=== PATIENT | female | born 1930 | race African-American/Black ===

== ENCOUNTER 2017-07-16 18:42 | Emergency (ER) | payer OTHER ==
[~2017-07-16] VITALS: Ht 162.6 cm; Wt 57.6 kg
[2017-07-16] MEDS ORDERED: NAMZARIC 14 MG1 EACH PO (18:58)
[2017-07-16] MEDS ORDERED: OYSTER SHELL 51 EACH PO (18:58)
[2017-07-16] MEDS ORDERED: TRAZODONE HCL50 MG PO (18:59)
[2017-07-16] MEDS ORDERED: TRIAMCINOLONE A80 G2 TOP (18:59)
[2017-07-16] MEDS ORDERED: LOPRESSOR50 PO (18:59)
[2017-07-16] MEDS ORDERED: MELATONIN3 MG PO (19:00)
[2017-07-16] MEDS ORDERED: CLARITIN10 MG PO (19:00)
[2017-07-16] MEDS ORDERED: ANTIVERT25 MG PO (19:00)
[2017-07-16] MEDS ORDERED: FLONASE 0.05%50 MCG NASAL (19:01)
[2017-07-16] MEDS ORDERED: PRINIVIL20 MG PO (19:01)
[2017-07-16] MEDS ORDERED: VITAMIN D1000 UNI1 PO (19:02)
[2017-07-16] MEDS ORDERED: LEXAPRO 10 MG T10 M1 PO (19:02)
[2017-07-16] MEDS ORDERED: ATIVAN0.5 MG PO (19:02)
[2017-07-16] MEDS ORDERED: ASPIRIN81 M2 PO (19:02)
[2017-07-16] MEDS ORDERED: APAP650 PO (19:03)
[2017-07-16 19:45] LABS: PLATELET COUNT 202 thou/uL (150-400)
[2017-07-16 19:47] LABS: ABSOLUTE NEUTROPHILS 5.7 thou/uL (1.4-8.2); BASOPHILS 0.8 % (0.0-2.0); EOSINOPHILS 4.1 % (0.0-3.0); LYMPHOCYTES 16.2 % (24.0-44.0); MCH 25.3 pg (26.0-34.0); MCHC 32.4 g/dL (28.0-37.0); MCV 78.1 fL (80.0-100.0); MONOCYTES 11.6 % (1.0-8.0); POLYS 67.3 % (36.0-66.0); RBC 4.74 mil/uL (4.20-5.00); RDW 15.5 % (10.5-14.5); WBC 8.5 thou/uL (4.0-11.0)
[2017-07-16 19:48] LABS: CALCIUM 9.1 mg/dL (8.5-10.1); CREATININE 1.3 mg/dL (0.6-1.0); POTASSIUM 3.9 mmol/L (3.5-5.1)
[2017-07-16 19:54] LABS: ALBUMIN 3.3 g/dL (3.4-5.0); TOTAL BILIRUBIN 0.6 mg/dL (<0.1-1.0); TOTAL PROTEIN 7.2 g/dL (6.4-8.2)
[2017-07-16 21:50] VITALS: BP 181/83
== END 2017-07-16 21:51 | disposition home or self-care (01) ==
LOC: ER 18:42
PROVIDERS: Physician Assistant
DX: S80.01XA Contusion of right knee, initial encounter (principal); S00.83XA Contusion of other part of head, initial encounter; W18.39XA Other fall on same level, initial encounter; Y93.89 Activity, other specified; Y92.89 Other specified places as the place of occurrence of the external cause; Y99.8 Other external cause status